=== PATIENT | male | born 1940 | race African-American/Black ===

== ENCOUNTER 2022-07-19 10:51 | Emergency (ER) | payer MEDICARE ==
[2022-07-19] MEDS ORDERED: Naproxen 500 MG TAB ONE (11:18)
== END 2022-07-19 11:20 | disposition home or self-care (01) ==
LOC: NAV ERS 10:51
DX: M19.011 Primary osteoarthritis, right shoulder (principal)
CPT/HCPCS: 99283

== ENCOUNTER 2022-08-12 12:24 | Emergency (ER) | payer MEDICARE | END 2022-08-12 12:59 | disposition home or self-care (01) | LOC: NAV ERS 12:24 | DX: U07.1 COVID-19 (principal); Z87.891 Personal history of nicotine dependence | CPT/HCPCS: 99283; U0003; U0005 ==